=== PATIENT | male | born 1975 | race Caucasian/White ===

== ENCOUNTER 2018-05-01 10:48 | Day surgery (SDC) | payer BC ==
[~2018-05-01 10:48] MED LIST: Betamethasone Acetate/Betamethasone Sod Phosphate 30 MG/5 ML MDV ONE; Iopamidol 408 MG/ML 50 ML SDV ONE; Lidocaine 2% 5 ML SDV ONE; Ropivacaine 0.5% 5 MG/ML 30 ML SDV ONE
--- NOTE | 2018-05-01 15:34 | OR ---
SURGEON: Atiya Ritchie D.O. DATE OF PROCEDURE: 05/01/2018 OR STAFF PRESENT: 1. Melia Wood RN. 2. Sheila Ramos RT. WOUND CLASS: I. PREOPERATIVE DIAGNOSES: 1. Lumbar degenerative disk disease L2-3,L3-4, L4-5, L5-S1. 2. Lumbar facet arthropathy. 3. Chronic low back pain. 4. Scoliosis POSTOPERATIVE DIAGNOSES: 1.same PROCEDURES PERFORMED: 1. Bilateral L3, L4, L5 diagnostic medial branch blocks. 2. Fluoroscopic guidance for needle placement. 3. Local with oral valium for sedation. SCREENING QUESTIONS: The patient answered "No" to all the following questions: 1. Are you allergic to iodine, Betadine or latex? 2. Do you have a bleeding disorder? 3. Are you on anti-inflammatories or blood thinners? 4. Do you have any current local or systemic infections? MEDICAL NECESSITY: This is a patient with chronic low back pain who comes in for the above diagnostic procedure. This procedure is being performed in accordance with national guidelines written by the [employer] DESCRIPTION OF PROCEDURE: The patient had the procedure thoroughly explained including risks, benefits and alternatives. Consent was signed in my clinic indicating understanding and willingness to proceed. The patient presented to [facility] and was escorted to the dressing room to disrobe and change into a hospital gown. Preoperative history and screening were performed by my nurse. Vital signs were taken and stable. The patient reported that Valium 10 milligrams was taken prior to the procedure. The patient was brought back to the procedure room and placed in the prone position on the procedure room table. A pillow was placed under the abdomen in order to flatten the lumbar lordosis. The back was prepped with ChloraPrep and sterilely draped. All personnel in the procedure room were dressed in appropriate attire including surgical scrubs, head and shoe covers. This was to ensure sterility while in the treatment room. During the time fluoroscopy was in use all personnel in the operating room wore lead crowley with thyroid collars. Sterile technique was used during the procedure. The fluoroscope was positioned to provide a right oblique view. Then the right L3 medial branch block was begun by anesthetizing the skin and soft tissues with 2 cubic centimeters of 2% Preservative-Free Lidocaine with a 25-gauge 1.5 inch needle. There were no signs of infection at the site of needle skin insertions. Using fluoroscopic guidance a sterile 22-gauge 3.5 inch spinal needle was positioned at the junction of the transverse process with the superior articular process of the L4 vertebral body. Precise needle placement was confirmed by fluoroscopy and 0.2 cubic centimeters of IsoVue-200 contrast dye which was injected through microbore tubing under live fluoroscopy and showed no intravascular flow pattern and adequate flow over the target L3 medial branch. Then 0.5 cubic centimeters of 0.5% Ropivacaine Preservative-Free was injected slowly without complications after negative aspiration. Then the fluoroscope was positioned to provide a right oblique view for the right L4 medial branch. This was begun by anesthetizing the skin and soft tissues. The fluoroscope was positioned and a sterile 22-gauge 3.5 inch needle was placed at the junction of the transverse process in the superior articular process of the L5 vertebral body. Precise needle placement was confirmed by fluoroscopy. Then 0.2 cubic centimeters of IsoVue-200 contrast dye was injected through microbore tubing under live fluoroscopy and showed no intravascular flow pattern and adequate flow over the target medial branch. After negative aspiration, 0.5 cubic centimeters of 0.5% Ropivacaine was injected without complications. The fluoroscope was then positioned to provide a right L5 dorsal ramus block. This was begun by anesthetizing the skin and soft tissues over the right sacral sulcus. Then using fluoroscopic guidance, a sterile 22-gauge 3.5 inch spinal needle was positioned at the right sacral ala. Precise needle placement was confirmed by fluoroscopy in AP and oblique views, and 0.2 cubic centimeters of IsoVue-200 contrast dye was injected through microbore tubing under live fluoroscopy and showed no intravascular flow pattern and adequate flow over the target nerves. After negative aspiration, 0.5 cubic centimeters of 0.5% Ropivacaine was injected. No complications were noted. Then attention was turned to the left side. The fluoroscope was positioned to provide a left oblique view for the left L3 medial branch block. This was begun by anesthetizing the skin and soft tissues. Then a 22-gauge 3.5 inch needle was positioned at the junction of the transverse process and the superior articular process at the left L4 vertebral body. Precise needle placement was confirmed by fluoroscopy with 0.2 cubic centimeters of IsoVue-200 contrast dye injected through microbore tubing under live fluoroscopy showing no intravascular flow pattern and adequate flow over the target medial branch of L3 on the left. After negative aspiration, 0.5 cubic centimeters of 0.5% Ropivacaine was injected without complications. The fluoroscope was positioned then to provide a left L4 medial branch block. The skin was anesthetized. Then a 22-gauge 3.5 inch spinal needle was positioned at the junction of the transverse process in the superior articular process of the L5 vertebral body on the left. Precise needle placement was confirmed by fluoroscopy and with 0.2 cubic centimeters of IsoVue-200 contrast dye injected through microbore tubing showing no intravascular flow pattern and adequate flow over the target medial branch of L4 on the left. Then 0.5 cubic centimeters of 0.5% Ropivacaine was injected after negative aspiration without complications. Then the fluoroscope was positioned for the left L5 dorsal ramus block. This was begun by anesthetizing the skin and soft tissues. Then with fluoroscopic guidance a sterile 22-gauge 3.5 inch spinal needle was positioned at the left sacral ala. Precise needle placement was confirmed with 0.2 cubic centimeters of IsoVue-200 contrast dye injected through microbore tubing under live fluoroscopy showing no intravascular flow pattern and adequate flow over the target L5 nerve. The procedure was well tolerated and vital signs were stable during and after the procedure. The staff escorted the patient to the recovery area. The patient was given both oral and written discharge and followup instructions. The patient will follow up with a pain diary which will be evaluated over this evening doing things that would normally cause pain. We will evaluate the efficacy of the diagnostic lumbar medial branch blocks as the patient will follow up in the clinic the next day. The patient was given both oral and written discharge and followup instructions. The patient voiced understanding including understanding of those signs and symptoms that would require emergency care and knows how to contact the office if there are any questions or concerns in the meantime. PREOPERATIVE PAIN: 7/10. POSTOPERATIVE PAIN: 0/10. Followup in the pain clinic with the pain diary in the morning. HOGLC / POORNIMAL /[id number] MEDHAT
== END 2018-05-01 13:20 | disposition home or self-care (01) ==
LOC: MW.SDS 10:48
PROVIDERS: ATTEND Anesthesiology
DX: G89.29 Other chronic pain (principal); M51.17 Intervertebral disc disorders with radiculopathy, lumbosacral region; M46.96 Unspecified inflammatory spondylopathy, lumbar region; M48.062 Spinal stenosis, lumbar region with neurogenic claudication; M53.87 Other specified dorsopathies, lumbosacral region; M41.9 Scoliosis, unspecified; M79.18 Myalgia, other site; Z87.891 Personal history of nicotine dependence; Z79.899 Other long term (current) drug therapy; Z88.5 Allergy status to narcotic agent
CPT/HCPCS: 64493; 64494; J2001; J2795; Q9966; J0702

== ENCOUNTER 2019-03-07 11:22 | Day surgery (SDC) | payer BC ==
[~2019-03-07 11:22] MED LIST changes: +Betamethasone Acetate/Betamethasone Sod Phosphate 30 MG/5 ML MDV EPIDUR ONE; -Betamethasone Acetate/Betamethasone Sod Phosphate 30 MG/5 ML MDV ONE; +Iopamidol 200-M 10 ML vial ITHECAL ONE; -Iopamidol 408 MG/ML 50 ML SDV ONE; +Lidocaine 2% 5 ML SDV INJECT ONE; -Lidocaine 2% 5 ML SDV ONE; +Ropivacaine 0.5% 5 MG/ML 30 ML SDV INJECT ONE; -Ropivacaine 0.5% 5 MG/ML 30 ML SDV ONE
--- NOTE | 2019-03-07 18:59 | OR ---
SURGEON: Atiya iRtchie D.O. DATE OF PROCEDURE: 03/07/2019 PRIMARY SURGEON: Atiya Ritchie D.O. ACADEMIC REGISTRAR: OR staff present: 1. Fadia Ledezma RN. 2. Sheila Ramos RT. WOUND CLASS: I. PREOPERATIVE DIAGNOSES: 1. Lumbar facet arthropathy, L3-4, L4-5, L5-S1. 2. Lumbar degenerative disk disease. 3. Chronic low back pain. POSTOPERATIVE DIAGNOSES: 1. Lumbar facet arthropathy, L3-4, L4-5, L5-S1. 2. Lumbar degenerative disk disease. 3. Chronic low back pain. PROCEDURES PERFORMED: 1. Right L3-4 facet joint injection. 2. Left L3-4 facet joint injection. 3. Right L4-5 facet joint injection. 4. Left L4-5 facet joint injection. 5. Right L5-S1 facet joint injection. 6. Left L5-S1 facet joint injection. 7. Fluoroscopic guidance for needle placement. 8. Local with oral Valium for sedation. SCREENING QUESTIONS: The patient answered "No" to all the following questions: 1. Are you allergic to iodine, Betadine or latex? 2. Do you have a bleeding disorder? 3. Are you on anti-inflammatories or blood thinners? 4. Do you have any current local or systemic infections? MEDICAL NECESSITY: This is a patient with chronic low back pain who comes in for the above diagnostic procedure. This procedure is being performed in accordance with national guidelines written by the [employer]; please see medical necessity note in chart. DESCRIPTION OF PROCEDURE: The patient had the procedure thoroughly explained including risks, benefits and alternatives. Consent was signed in my clinic indicating understanding and willingness to proceed. The patient presented to [facility] and was escorted to the dressing room to disrobe and change into a hospital gown. Preoperative history and screening were performed by my nurse. Vital signs were taken and stable. The patient reported that Valium 10 milligrams was taken prior to the procedure. The patient was brought back to the procedure room and placed in the prone position on the procedure room table. A pillow was placed under the abdomen in order to flatten the lumbar lordosis. The back was prepped with ChloraPrep and sterilely draped. All personnel in the procedure room were dressed in appropriate attire including surgical scrubs, head and shoe covers. This was to ensure sterility while in the treatment room. During the time fluoroscopy was in use all personnel in the operating room wore lead crowley with thyroid collars. Sterile technique was used during the procedure. The fluoroscope was positioned to provide a right oblique view. Then the right L3 medial branch block was begun by anesthetizing the skin and soft tissues with 2 cubic centimeters of 2% Preservative-Free Lidocaine with a 25-gauge 1.5 inch needle. There were no signs of infection at the site of needle skin insertions. Using fluoroscopic guidance a sterile 22-gauge 3.5 inch spinal needle was positioned at the junction of the transverse process with the superior articular process of the L4 vertebral body. Precise needle placement was confirmed by fluoroscopy and 0.2 cubic centimeters of IsoVue-200 contrast dye which was injected through microbore tubing under live fluoroscopy and showed no intravascular flow pattern and adequate flow over the target L3 medial branch. Then 0.5 cubic centimeters of 0.5% Ropivacaine Preservative-Free was injected slowly without complications after negative aspiration. Then the fluoroscope was positioned to provide a right oblique view for the right L4 medial branch. This was begun by anesthetizing the skin and soft tissues. The fluoroscope was positioned and a sterile 22-gauge 3.5 inch needle was placed at the junction of the transverse process in the superior articular process of the L5 vertebral body. Precise needle placement was confirmed by fluoroscopy. Then 0.2 cubic centimeters of IsoVue-200 contrast dye was injected through microbore tubing under live fluoroscopy and showed no intravascular flow pattern and adequate flow over the target medial branch. After negative aspiration, 0.5 cubic centimeters of 0.5% Ropivacaine was injected without complications. The fluoroscope was then positioned to provide a right L5 dorsal ramus block. This was begun by anesthetizing the skin and soft tissues over the right sacral sulcus. Then using fluoroscopic guidance, a sterile 22-gauge 3.5 inch spinal needle was positioned at the right sacral ala. Precise needle placement was confirmed by fluoroscopy in AP and oblique views, and 0.2 cubic centimeters of IsoVue-200 contrast dye was injected through microbore tubing under live fluoroscopy and showed no intravascular flow pattern and adequate flow over the target nerves. After negative aspiration, 0.5 cubic centimeters of 0.5% Ropivacaine was injected. No complications were noted. Then attention was turned to the left side. The fluoroscope was positioned to provide a left oblique view for the left L3 medial branch block. This was begun by anesthetizing the skin and soft tissues. Then a 22-gauge 3.5 inch needle was positioned at the junction of the transverse process and the superior articular process at the left L4 vertebral body. Precise needle placement was confirmed by fluoroscopy with 0.2 cubic centimeters of IsoVue-200 contrast dye injected through microbore tubing under live fluoroscopy showing no intravascular flow pattern and adequate flow over the target medial branch of L3 on the left. After negative aspiration, 0.5 cubic centimeters of 0.5% Ropivacaine was injected without complications. The fluoroscope was positioned then to provide a left L4 medial branch block. The skin was anesthetized. Then a 22-gauge 3.5 inch spinal needle was positioned at the junction of the transverse process in the superior articular process of the L5 vertebral body on the left. Precise needle placement was confirmed by fluoroscopy and with 0.2 cubic centimeters of IsoVue-200 contrast dye injected through microbore tubing showing no intravascular flow pattern and adequate flow over the target medial branch of L4 on the left. Then 0.5 cubic centimeters of 0.5% Ropivacaine was injected after negative aspiration without complications. Then the fluoroscope was positioned for the left L5 dorsal ramus block. This was begun by anesthetizing the skin and soft tissues. Then with fluoroscopic guidance a sterile 22-gauge 3.5 inch spinal needle was positioned at the left sacral ala. Precise needle placement was confirmed with 0.2 cubic centimeters of IsoVue-200 contrast dye injected through microbore tubing under live fluoroscopy showing no intravascular flow pattern and adequate flow over the target L5 nerve. The procedure was well tolerated and vital signs were stable during and after the procedure. The staff escorted the patient to the recovery area. The patient was given both oral and written discharge and followup instructions. The patient will follow up with a pain diary which will be evaluated over this evening doing things that would normally cause pain. We will evaluate the efficacy of the diagnostic lumbar medial branch blocks as the patient will follow up in the clinic the next day. The patient was given both oral and written discharge and followup instructions. The patient voiced understanding including understanding of those signs and symptoms that would require emergency care and knows how to contact the office if there are any questions or concerns in the meantime. PREOPERATIVE PAIN: /10. POSTOPERATIVE PAIN: 05/13. FOLLOWUP: Follow up in Pain Clinic in 1 month. DEJAN / DALE /[id number]
== END 2019-03-07 13:40 | disposition home or self-care (01) ==
LOC: MW.SDS 11:22
PROVIDERS: ATTEND Anesthesiology
DX: M51.36 Other intervertebral disc degeneration, lumbar region (principal); M51.37 Other intervertebral disc degeneration, lumbosacral region
CPT/HCPCS: J0702

== ENCOUNTER 2022-01-25 15:54 | Emergency (ER) | payer BC ==
[2022-01-25] MEDS ORDERED: Sodium Chloride 0.9% 10 ML Syringe FLUSH PRN (16:03)
[2022-01-25] MEDS ORDERED: Sodium Chloride 0.9% 1,000 ML IV ONE ×2 (16:03→16:07)
[2022-01-25] MEDS ORDERED: Sodium Chloride 0.9% 2.5 ML Syringe FLUSH PRN (16:03)
[2022-01-25] MEDS ORDERED: LORazepam 2 MG/ML SDV IVPUSH ONE ×3 (16:16→18:19)
[2022-01-25] MEDS ORDERED: LORazepam 2 MG/ML SDV ONE ×3 (16:17→18:23)
[2022-01-25] MEDS ORDERED: Atropine 1 MG/ML SDV IVPUSH ONE (16:45)
[2022-01-25] MEDS ORDERED: LORazepam 2 MG/ML SDV IV STA (16:47)
[2022-01-25 17:52] LABS: ACETAMINOPHEN <2.0 ug/mL; BLOOD UREA NITROGEN,BUN 7 mg/dL (7.0-18.0); CARBON DIOXIDE,CO2 26.3 mmol/L (21.0-32.0); CHLORIDE,CL 107 mmol/L (98-107); GLUCOSE RANDOM 106 mg/dL (74-106); POTASSIUM,K 3.4 mmol/L (3.5-5.1); SODIUM,NA 146 mmol/L (136-148)
[2022-01-25 17:56] LABS: ESTIMATED GFR 83 mL/min (>60)
[2022-01-25] MEDS ORDERED: Ondansetron 4 MG/2 ML SDV IVPUSH ONE (21:44)
== END 2022-01-25 22:16 | disposition home or self-care (01) ==
LOC: MW.ED 15:54
DX: F10.929 Alcohol use, unspecified with intoxication, unspecified (principal); Z20.822 Contact with and (suspected) exposure to COVID-19; Y90.8 Blood alcohol level of 240 mg/100 ml or more
CPT/HCPCS: 36415; 70450; 71045; 80053; 80143; 80179; 80307; 82140; 83735; 85025; 87635; 93005; 96361; 96374; 96375; 96376; 99284; J2060; J2405; J3490; J7030; U0002

== ENCOUNTER 2022-04-13 16:33 | Emergency (ER) | payer BC ==
[2022-04-13] MEDS ORDERED: Sodium Chloride 0.9% 1,000 ML IV ONE (17:18)
[2022-04-13] MEDS ORDERED: Water For Injection, Sterile 20 ML SDV INJECT ONE ×2 (17:27→17:28)
[2022-04-13] MEDS ORDERED: Ziprasidone Mesylate 20 MG Vial IM STA (17:27)
[2022-04-13] MEDS ORDERED: Ziprasidone Mesylate 20 MG Vial IM PRN (17:28)
[2022-04-13 17:56] LABS: ACETAMINOPHEN <2.0 ug/mL; BLOOD UREA NITROGEN,BUN 6 mg/dL (7.0-18.0); CARBON DIOXIDE,CO2 27.5 mmol/L (21.0-32.0); CHLORIDE,CL 103 mmol/L (98-107); GLUCOSE RANDOM 88 mg/dL (74-106); LIPASE 142 U/L (73-393); POTASSIUM,K 3.3 mmol/L (3.5-5.1); SODIUM,NA 144 mmol/L (136-148)
[2022-04-13 18:03] LABS: ESTIMATED GFR 83 mL/min (>60)
[2022-04-13 19:16] LABS: CORONAVIRUS COVID-19 NAA NEGATIVE (NEGATIVE); INFLUENZA A NAA NEGATIVE (NEGATIVE); INFLUENZA B NAA NEGATIVE (NEGATIVE); RESPIRATORY SYNCYTIAL VIR NAA NEGATIVE (NEGATIVE)
[2022-04-13] MEDS ORDERED: Ondansetron 4 MG/2 ML SDV ONE (23:30)
[2022-04-13] MEDS ORDERED: Ondansetron 4 MG/2 ML SDV IVPUSH STA (23:35)
== END 2022-04-14 00:10 | disposition home or self-care (01) ==
LOC: MW.ED 16:33
DX: F10.929 Alcohol use, unspecified with intoxication, unspecified (principal); Z88.5 Allergy status to narcotic agent; Z20.822 Contact with and (suspected) exposure to COVID-19
CPT/HCPCS: 0241U; 36415; 70450; 80053; 80143; 80179; 80307; 83690; 83735; 85025; 85610; 96361; 96372; 96374; 99285; J2405; J3486; J7030

== ENCOUNTER 2022-06-28 22:15 | Emergency (ER) | payer BC | END 2022-06-28 23:09 | LOC: MW.ED 22:15 | DX: Z02.89 Encounter for other administrative examinations (principal); Z88.5 Allergy status to narcotic agent | CPT/HCPCS: 99282 ==

== ENCOUNTER 2022-07-07 14:16 | Emergency (ER) | payer BC ==
[2022-07-07] MEDS ORDERED: Ondansetron 4 MG/2 ML SDV IVPUSH ONE ×2 (14:22→16:20)
[2022-07-07] MEDS ORDERED: Sodium Chloride 0.9% 1,000 ML IV ONE (14:22)
[2022-07-07] MEDS ORDERED: Atropine 1 MG/ML SDV IVPUSH ONE (14:25)
[2022-07-07] MEDS ORDERED: LORazepam 2 MG/ML SDV IVPUSH ONE (14:28)
[2022-07-07 14:52] LABS: CARBON DIOXIDE,CO2 22.7 mmol/L (21.0-32.0); POTASSIUM,K 3.4 mmol/L (3.5-5.1)
[2022-07-07 14:53] LABS: ACETAMINOPHEN <2.0 ug/mL
== END 2022-07-07 16:38 | disposition home or self-care (01) ==
LOC: MW.ED 14:16
DX: F10.129 Alcohol abuse with intoxication, unspecified (principal); Z88.5 Allergy status to narcotic agent; Y90.8 Blood alcohol level of 240 mg/100 ml or more
CPT/HCPCS: 36415; 70450; 71045; 80053; 80143; 80179; 80307; 83690; 83735; 85025; 85610; 93005; 96361; 96374; 96375; 96376; 99285; J2060; J2405; J7030

== ENCOUNTER 2023-09-13 21:35 | Emergency (ER) | payer BC ==
[2023-09-13] MEDS: PHENobarbital Sodium 130 MG/ML SDV IVPUSH STA ×2 (21:44→22:25)
[2023-09-13] MEDS: Sodium Chloride 0.9% 1,000 ML IV ONE ×3 (21:44→23:15)
[2023-09-13 22:10] LABS: BASOPHILS ABSOLUTE AUTO 0.07 K/uL (0.00-0.20); BASOPHILS PERCENT AUTO 0.6 % (0.0-1.0); EOSINOPHILS ABSOLUTE AUTO 0.33 K/uL (0.00-0.45); EOSINOPHILS PERCENT AUTO 2.8 % (0.0-6.0); IMMATURE GRAN ABSOLUTE AUTO 0.04 K/uL (0.00-0.05); IMMATURE GRAN PERCENT AUTO 0.3 % (0.0-0.4); LYMPHOCYTES ABSOLUTE AUTO 2.61 K/uL (1.00-4.80); LYMPHOCYTES PERCENT AUTO 21.9 % (24.0-44.0); MEAN CORPUSCULAR HEMOGLOBIN 30.4 pg (28.0-32.0); MEAN CORPUSCULAR HGB CONC 35.6 g/dL (32.0-36.0); MEAN CORPUSCULAR VOLUME 85.6 fL (83.0-99.0); MEAN PLATELET VOLUME 9.4 fL (9.4-12.4); MONOCYTES ABSOLUTE AUTO 0.64 K/uL (0.00-0.80); MONOCYTES PERCENT AUTO 5.4 % (0.0-8.0); NEUTROPHILS ABSOLUTE AUTO 8.23 K/uL (1.80-7.70); PLATELET COUNT,PLT 231 K/uL (150-400); RED BLOOD CELL COUNT 5.26 M/uL (4.52-5.90); WHITE BLOOD CELL COUNT,WBC 11.92 K/uL (3.9-11.3)
[2023-09-13] MEDS: Ondansetron 4 MG/2 ML SDV IVPUSH ONE (22:25)
[2023-09-13 22:28] LABS: INR 0.99 (0.86-1.11); PTT,PARTIAL THROMBOPLSTIN TIME 26.2 SEC (23.9-30.7)
[2023-09-13 22:35] LABS: A/G RATIO 1.6 (0.9-1.6); ALANINE AMINOTRANSFERASE,ALT 26 IU/L (14-63); ALBUMIN 4.5 g/dL (3.4-5.0); ALKALINE PHOSPHATASE 65 U/L (46-116); ASPARTATE AMNIOTRANSFERASE,AST 20 IU/L (15-37); BILIRUBIN TOTAL 0.8 mg/dL (0.2-1.0); BLOOD UREA NITROGEN,BUN 13 mg/dL (7.0-18.0); CALCIUM 9.9 mg/dL (8.5-10.1); CARBON DIOXIDE,CO2 20.1 mmol/L (21.0-32.0); CHLORIDE,CL 104 mmol/L (98-107); CREATININE 1.3 mg/dL (0.8-1.3); EST CRCL DRUG DOSING (CG) 77.68 mL/min; ESTIMATED GFR 67 mL/min (>60); ETHANOL BLOOD MEDICAL <3 mg/dL; GLUCOSE RANDOM 110 mg/dL (74-106); LIPASE 98 U/L (16-77); MAGNESIUM 1.7 mg/dL (1.8-2.4); POTASSIUM,K 3.5 mmol/L (3.5-5.1); PROTEIN TOTAL,TP 7.3 g/dL (6.4-8.2); SODIUM,NA 141 mmol/L (136-148)
[2023-09-13 22:36] LABS: LACTIC ACID 4.6 mmol/L (0.4-2.0)
[2023-09-13] MEDS: Iopamidol 755 MG/ML 500 ML Multipack Bottle IVPUSH ONE (23:13)
[2023-09-13] MEDS: Piperacillin/Tazobactam 4.5 GM in Sodium Chloride 0.9% 100 ML IV ONE (23:15)
[2023-09-14 00:42] LABS: AMPHETAMINES SCREEN, URINE NEGATIVE (CUTOFF=500); BARBITURATE SCREEN,URINE PRESUMPTIVE POSITIVE (CUTOFF=200); BENZODIAZEPINES SCREEN,URINE NEGATIVE (CUTOFF=150); BUPRENORPHINE SCREEN,URINE NEGATIVE (CUTOFF=10); METHADONE SCREEN, URINE NEGATIVE (CUTOFF=200); METHAMPHETAMINES SCREEN, URINE NEGATIVE (CUTOFF=500); OXYCODONE SCREEN,URINE NEGATIVE (CUT0FF=100); PCP SCREEN,URINE NEGATIVE (CUTOFF=25); THC SCREEN,URINE 20 NG/ML PRESUMPTIVE POSITIVE (CUTOFF=50)
[2023-09-14] MEDS: Sodium Chloride 0.9% 1,000 ML IV ONE (01:15)
== END 2023-09-14 02:08 | disposition home or self-care (01) ==
LOC: MW.ED 21:35
DX: R19.7 Diarrhea, unspecified (principal); R74.02 Elevation of levels of lactic acid dehydrogenase [LDH]; T68.XXXA Hypothermia, initial encounter; Z88.8 Allergy status to other drugs, medicaments and biological substances; Z79.899 Other long term (current) drug therapy; Z75.8 Other problems related to medical facilities and other health care
CPT/HCPCS: 36415; 71045; 74177; 80053; 80305; 80307; 82140; 83605; 83690; 83735; 84484; 85025; 85610; 85730; 87040; 93005; 96361; 96365; 96375; 99285; J2405; J2543; J2560; J3490; J7030; Q9967; 93010; 99284

== ENCOUNTER 2024-03-15 11:45 | Day surgery (SDC) | payer BC ==
[2024-03-15] MEDS: Lactated Ringers 1,000 ML IV SCH (12:15)
[2024-03-15] MEDS ORDERED: propofoL 500 MG/50 ML 50 ML ONE (13:11)
[2024-03-15] MEDS ORDERED: Lidocaine 1% 5 ML VIAL ONE (13:11)
[2024-03-15] MEDS ORDERED: Propofol 200 MG/20 ML SDV ONE ×2 (14:08→14:10)
[2024-03-15] MEDS ORDERED: Glycopyrrolate 0.2 MG/ML SDV ONE (14:22)
[2024-03-15] MEDS ORDERED: dexmedeTOMIDine HCl 200 MCG/2 ML SDV ONE (14:30)
== END 2024-03-15 15:55 | disposition home or self-care (01) ==
LOC: MW.SDS 11:45
PROVIDERS: ATTEND Surgery
DX: K29.80 Duodenitis without bleeding (principal); K63.5 Polyp of colon; K64.8 Other hemorrhoids; K52.9 Noninfective gastroenteritis and colitis, unspecified; R13.10 Dysphagia, unspecified; Z88.8 Allergy status to other drugs, medicaments and biological substances; Z79.899 Other long term (current) drug therapy
CPT/HCPCS: 43239; 45380; J1596; J2704; J7120; 00813; J3490